=== PATIENT | male | born 1980 | race Caucasian/White ===

== ENCOUNTER 2022-11-09 08:09 | Emergency (ER) | payer OTHER, SELFPAY ==
[2022-11-09 08:17] VITALS: BP 152/82; PULSE 90; RESP 18; TEMP 36.1; O2SAT 99; BMI 29.6
--- NOTE | 2022-11-09 08:31 | ED_ITS ---
HPI - General Adult General Chief complaint: Back Injury/Pain Stated complaint: Low back pain Time Seen by Provider: 11/09/22 08:12 Source: patient Mode of arrival: ambulatory Limitations: no limitations History of Present Illness HPI narrative: Generally healthy 42-year-old male coming in today complaining of low back pain. Patient states that approximately 1 day ago patient was bending over picking up a heavy crate when he felt a pop in his lower left back. He was able to finish his shift without much difficulty however he then woke up this morning with a lot of discomfort. Pain is located in the left lower back does not radiate. No pain down his leg. No difficulty urinating or having bowel movements. He states that this has occurred to him in the past, approximately 1 year ago. Patient takes workout supplements, no prescription medications. He does smoke tobacco. Denies any surgeries on his back. Related Data Previous Rx's Medication Instructions Recorded cyclobenzaprine 10 mg tablet 10 mg PO TID PRN muscle spasm #10 11/09/22 tabs ketorolac 10 mg tablet 10 mg PO TID 5 days #15 tabs 11/09/22 Allergies Allergy/AdvReac Type Severity Reaction Status Date / Time No Known Drug Allergies Allergy Verified 11/09/22 08:19 Review of Systems Status of ROS: Reports: 10 or more systems reviewed and unremarkable except as noted in History and below [facility] Social History Smoking Status: Current every day smoker Do you use any of these nicotine containing products: None How often do you have a drink containing alcohol: never AUDIT-C Alcohol total score: 0 Exam Narrative: Exam Narrative: Well-nourished well-developed patient in no acute distress. Alert and oriented. Answers questions appropriately. Mood and affect are appropriate. Thoughts are goal oriented and rational. No tangential or magical thinking noted. Patient speaks in full sentences without needing to catch their breath. Speech is not slurred or pressured. HEENT: Normocephalic atraumatic. Pupils are equally round reactive to light. Extraocular muscles are intact. Conjunctivae are moist without any icterus noted. Moist mucous membranes. Abdomen: Soft and nontender nondistended with normal bowel sounds. Extremities: Bilateral lower extremities are without edema. Normal DP and PT pulses. Skin: Well perfused without any obvious rashes. Back: Normal appearance. He has mild tenderness to palpation of the paraspinal musculature on the left lower back. No tenderness to palpation over the thoracic or lumbar spine. Strength is 5/5 of the upper and lower extremities. Reflexes are 2+ and symmetric at the knees. Gait is normal. Const: Vital Signs, click to edit/add: Vital Signs - 24 hr 11/09/22 08:17 Temperature 97.0 F L Pulse Rate [Right Pulse Oximeter] 90 Respiratory Rate 18 Blood Pressure [Ri ght Upper Arm] 152/82 H Pulse Oximetry 99 Oxygen Delivery Me thod Room Air Course Vital Signs Vital signs: Initial Vital Signs Temperature 97.0 F L 11/09/22 08:17 Temperature Source Temporal Artery Scan 11/09/22 08:17 Pulse Rate 90 11/09/22 08:17 Respiratory Rate 18 11/09/22 08:17 Blood Pressure 152/82 H 11/09/22 08:17 Blood Pressure Mean 105 11/09/22 08:17 Blood Pressure Position Sitting 11/09/22 08:17 Pulse Oximetry 99 11/09/22 08:17 Oxygen Delivery Method Room Air 11/09/22 08:17 Vital Signs Temperature 97.0 F L 11/09/22 08:17 Pulse Rate 90 11/09/22 08:17 Respiratory Rate 18 11/09/22 08:17 Blood Pressure 152/82 H 11/09/22 08:17 Pulse Oximetry 99 11/09/22 08:17 Oxygen Delivery Method Room Air 11/09/22 08:17 Temperature 97.0 F L 11/09/22 08:17 Pulse Rate 90 11/09/22 08:17 Respiratory Rate 18 11/09/22 08:17 Blood Pressure 152/82 H 11/09/22 08:17 Pulse Oximetry 99 11/09/22 08:17 Oxygen Delivery Method Room Air 11/09/22 08:17 Medical Decision Making MDM Narrative Medical decision making narrative: 42-year-old male with low back pain, likely musculoskeletal in nature. We discussed heat, gentle stretching, muscle relaxer and Toradol. Patient was in agreement with this plan. He did request worker's comp paperwork. He had no other questions. Discharge Plan Discharge Clinical Impression: Strain of lumbar region Patient Disposition: Home, Self-Care Condition: Stable Additional Instructions: Activity as tolerated, avoid sitting or lying down for prolonged periods of time. Recommend daily gentle stretching. Take pain medication as needed, with food. Prescriptions: New ketorolac 10 mg tablet 10 mg PO TID 5 Days Qty: 15 0RF cyclobenzaprine 10 mg tablet 10 mg PO TID PRN (Reason: muscle spasm) Qty: 10 0RF Stand Alone Forms: MyHealth Info Instructions
== END 2022-11-09 08:47 | disposition home or self-care (01) ==
PROVIDERS: Emergency Provider Family Medicine
DX: S39.012A Strain of muscle, fascia and tendon of lower back, initial encounter (principal); X50.0XXA Overexertion from strenuous movement or load, initial encounter; Y99.0 Civilian activity done for income or pay
CPT/HCPCS: 99283